=== PATIENT | male | born 1980 | race Caucasian/White ===

== ENCOUNTER 2019-02-01 18:24 | Emergency (ER) | payer SELFPAY ==
[2019-02-01 18:31] VITALS: BP 154/97; PULSE 111; RESP 16; TEMP 36.1; O2SAT 99; BMI 22.7
[2019-02-01 18:40] VITALS: BP 158/99; PULSE 108; RESP 18; O2SAT 99
[2019-02-01 19:00] VITALS: BP 157/92; PULSE 110; RESP 17
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
[2019-02-01 19:30] VITALS: BP 145/78; PULSE 103; RESP 18; O2SAT 95
[2019-02-01 19:46] VITALS: BP 145/84; PULSE 98; RESP 18; O2SAT 99
== END 2019-02-01 20:00 | disposition home or self-care (01) ==
PROVIDERS: Emergency Provider Emergency Medicine
DX: S02.2XXA Fracture of nasal bones, initial encounter for closed fracture (principal); Y04.0XXA Assault by unarmed brawl or fight, initial encounter
CPT/HCPCS: 70450; 70486; 99283; 99284

== ENCOUNTER 2019-08-19 15:29 | Emergency (ER) | payer OTHER, MEDICAID, SELFPAY ==
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
[2019-08-19 15:54] VITALS: BP 170/91; PULSE 104; RESP 16; TEMP 36.9; O2SAT 93
== END 2019-08-19 16:33 | disposition home or self-care (01) ==
PROVIDERS: Emergency Provider Emergency Medicine
DX: Z02.89 Encounter for other administrative examinations (principal); F10.129 Alcohol abuse with intoxication, unspecified
CPT/HCPCS: 99281